=== PATIENT | male | born 1960 | race Caucasian/White ===

== ENCOUNTER 2023-01-06 12:20 | Day surgery (SDC) | payer OTHER ==
[2023-01-06 13:35] VITALS: RESP 18
--- NOTE | 2023-01-06 14:32 | US ---
ULTRASOUND GUIDED FNA THYROID BIOPSY: CLINICAL HISTORY: Right thyroid nodule FINDINGS: The procedure was explained to the patient. The risks, complications, benefits and alternatives were discussed and any questions were answered. Informed consent was obtained. Patient was placed supin e on the ultrasound table and prepped and draped in the usual sterile fashion. Utilizing a 25 gauge needle, five passes were made into the right thyroid nodule. Patient was stable throughout the procedure. Pathology is pending. All elements of maximal barrier technique were utilized. IMPRESSION: 1. Successful ultrasound guided FNA thyroid biopsy.
[2023-01-06 17:37] VITALS: BP 124/72; PULSE 74; TEMP 98.1
== END 2023-01-06 14:45 | disposition home or self-care (01) ==
LOC: RADPROMAIN 12:20
PROVIDERS: ATTEND Radiology Diagnostic Radiology
DX: E04.1 Nontoxic single thyroid nodule (principal)
CPT/HCPCS: 10005; 88173; 88305

== ENCOUNTER → 2024-03-21 | Day surgery (SDC) | payer OTHER ==
[2024-03-15 12:22] VITALS: BMI 24.3
[~2024-03-21] MED LIST: GLYCOPYRROLATE 0.2 MG/ML 2 ML VIAL ONE; LIDOCAINE 1% INJ 10MG/ML (20 ML MDV) ONE; PROPOFOL 10 MG/ML 20 ML VIAL IV ONE
[2024-03-21 10:34] VITALS: TEMP 98
[2024-03-21] MEDS: LACTATED RINGERS 1,000 ML IV SCH (10:42)
[2024-03-21] MEDS: IV FLUID CONTINUATION 1,000 ML IV ONE (10:42)
--- NOTE | 2024-03-21 11:04 | P.GSHP ---
History of Present Illness H&P Date: 03/21/24 Chief Complaint: Screening with history of polyps 63-year-old male here for today for colonoscopy. Last colonoscopy he believes was 4 years ago. History of colon polyps per patient. No family history of colon cancer. No bowel complaints. Past Medical History Past Medical History: Hyperlipidemia, Osteoarthritis (OA) Additional Past Medical History / Comment(s): Varicose veins left leg. Hemorrhoid. History of Any Multi-Drug Resistant Organisms: None Reported Past Surgical History: No Surgical Hx Reported Additional Past Surgical History / Comment(s): Colonoscopy. Past Anesthesia/Blood Transfusion Reactions: No Reported Reaction, Motion Sickness Additional Past Anesthesia/Blood Transfusion Reaction / Comment(s): Hx motion sickness, none now. Family hx unknown - pt adopted. Smoking Status: Former smoker, Vaper - Past Family History Father Brother(s) Family Medical History: Thyroid Disorder Mother Additional Family Medical History / Comment(s): Patient adopted - family hx unknown Medications and Allergies Home Medications Medication Instructions Recorded Confirmed Type Aspirin 325 mg PO Q48H 03/15/24 03/21/24 History Cholecalciferol [Vitamin D3 (25 25 mcg PO DAILY 03/15/24 03/21/24 History Mcg = 1000 Iu)] Co Q 10 (Unknown Dose) 1 tab PO DAILY 03/15/24 03/21/24 History Doddridge-3/Dha/Epa/Fish Oil [Doddridge-3 565 mg PO DAILY 03/15/24 03/21/24 History Fish Oil 1,000 mg Sfgl] Sertraline [Zoloft] 50 mg PO QAM 03/15/24 03/21/24 History Testosterone + Vitamins 1 tab PO DAILY 03/15/24 03/21/24 History Vitamin C + Zinc 1 tab PO DAILY 03/15/24 03/21/24 History Vitamin E (Dl,Tocopheryl Acet) 400 unit PO DAILY 03/15/24 03/21/24 History [Vitamin E (400 Iu = 180 mg)] Allergies Allergy/AdvReac Type Severity Reaction Status Date / Time Penicillins Allergy Unknown Verified 03/21/24 10:30 Surgical - Exam Vital Signs Temp Pulse Resp BP Pulse Ox 98.0 F 54 L 17 1421/75 97 03/21/24 10:33 03/21/24 10:33 03/21/24 10:33 03/21/24 10:33 03/21/24 10:33 Physical exam: General: Well-developed, well-nourished HEENT: Normocephalic, sclerae nonicteric Abdomen: Nontender, nondistended Extremities: No edema Neuro: Alert and oriented Assessment and Plan (1) Screening for colon cancer Narrative/Plan: Will proceed with colonoscopy at this time. Current Visit: Yes Status: Acute Code(s): Z12.11 - ENCOUNTER FOR SCREENING FOR MALIGNANT NEOPLASM OF COLON SNOMED Code(s): 567918830
--- NOTE | 2024-03-21 11:16 | P.PCN ---
Date of Procedure: 03/21/24 Procedure(s) Performed: PREOPERATIVE DIAGNOSIS: Screening with history of polyps POSTOPERATIVE DIAGNOSIS: Poor prep PROCEDURE: Colonoscopy ANESTHESIA: MAC SURGEON: Uriah Kennedy M.D. SPECIMENS: None ENDOSCOPIC PROCEDURE: The patient was placed on the endoscopy table in the left decubitus position. The Olympus colonoscope was inserted into the anus and passed under direct visualization to the base of the cecum. The appendiceal orifice was visualized. From that point the scope was slowly withdrawn inspecting all surfaces carefully. There were no neoplastic inflammatory or polypoid lesions throughout the cecum, ascending, transverse, descending, sigmoid and rectum. There was no visible diverticulosis noted. The patient's prep was quite poor limiting her visualization of most of the mucosal surfaces. Digital rectal examination was normal. The patient was taken to the recovery room in stable condition per anesthesia guidelines. RECOMMENDATIONS: Resume diet. Consider short-term repeat colonoscopy given the poor prep today.
[2024-03-21 12:02] VITALS: BP 121/72; PULSE 52; RESP 18
== END ==
LOC: ORWHC2ENDO 09:31
PROVIDERS: ATTEND Surgery
DX: E78.5 Hyperlipidemia, unspecified (principal); M19.90 Unspecified osteoarthritis, unspecified site; Z88.0 Allergy status to penicillin; Z83.49 Family history of other endocrine, nutritional and metabolic diseases; Z79.82 Long term (current) use of aspirin; Z79.899 Other long term (current) drug therapy; Z87.891 Personal history of nicotine dependence; Z87.19 Personal history of other diseases of the digestive system; Z86.010 Personal history of colon polyps
CPT/HCPCS: 45378; J2001; J2704; J1596